=== PATIENT | male | born 1990 | race Caucasian/White ===

== ENCOUNTER 2024-01-29 14:01 | Emergency (ER) | payer SELFPAY ==
[~2024-01-29] VITALS: Ht 172.7 cm; Wt 81.1 kg
[2024-01-29 14:04] VITALS: BP 131/92; PULSE 105; RESP 22; TEMP 98.7; O2SAT 98
[2024-01-29] MEDS: LORazepam 1 MG tablet PO ONE (15:13)
[2024-01-29] MEDS ORDERED: HYDR-3686 PO (15:55)
== END 2024-01-29 16:04 | disposition home or self-care (01) ==
LOC: ER 14:02
DX: F41.9 Anxiety disorder, unspecified (principal); R20.2 Paresthesia of skin; F17.210 Nicotine dependence, cigarettes, uncomplicated; F12.90 Cannabis use, unspecified, uncomplicated
CPT/HCPCS: 99283